=== PATIENT | male | born 1995 | race Caucasian/White ===

== ENCOUNTER → 2018-11-05 | Outpatient (CLI) | payer SELFPAY ==
[~2018-11-05] MED LIST: ADHD MEDICATION; ADV250/50 INH; ALB0.5 INH; CEPH-13 PO; CEPH500T7 PO; CONCERTA; CYCL10TA29 PO; DICL-195 PO; HYDR-653 PO; SUMA4PEN3 SQ
--- NOTE | 2018-11-05 17:09 | RADIOLOGY IMAGING REPORT ---
FACILITY: [facility] [place] PATIENT NAME: Bowen Quach : 1995 MR: [id number] V: [id number] EXAM DATE: ORDERING PHYSICIAN: VANESSA TREJO TECHNOLOGIST: Location: Patient: Bowen Quach : 1995 Visit/Account:[id number] Date of Sevice: 11/05/2018 SCROTAL ULTRASOUND INDICATION: Increased right testicular swelling. COMPARISON: None available. FINDINGS: Right testicle measures 4.4 x 2.0 x 3.9 cm in cc, AP, and transverse dimensions respectively. There is normal arterial and venous blood flow. No evidence of hydrocele.. No varicocele identified. The right epididymal head measures 1.0 cm. Mildly increased in size and heterogeneous with increased vascularity. No focal abnormality. Left testicle measures 4.8 x 2.2 x 3.4 cm in cc, AP, and transverse dimensions respectively. There is normal arterial and venous blood flow. Small left varicocele. No varicocele identified. The left epididymal head measures 1.5 cm. Normal blood flow. 4 mm cyst in the epididymal head. The bilateral testicles appear homogenous in echogenicity. IMPRESSION: 1. Normal blood flow within the bilateral testicles with no focal abnormality. 2. Findings consistent with right epididymitis. No focal abnormality. 3. Small left varicocele. 4. 4 mm left epididymal head cyst. I called report to VISHAL Crespo at 11/05/2018 5:04 PM. Report Dictated By: Hernandez Hernandez at 11/05/2018 4:59 PM Report E-Signed By: Hernandez Hernandez at 11/05/2018 5:05 PM WSN:[id number]
== END ==
LOC: US 15:56
PROVIDERS: ATTEND Physician Assistant
DX: N45.1 Epididymitis (principal); I86.1 Scrotal varices; N50.3 Cyst of epididymis
CPT/HCPCS: 76870